=== PATIENT | female | born 1965 | race Caucasian/White ===

== ENCOUNTER → 2016-05-14 | Outpatient (CLI) | payer OTHER ==
[~2016-05-14] MED LIST: ASCO500T3 PO; ATEN-175 PO; CLON1TAB3 PO; CLR10 PO; CYCL10TA6 PO; DOCU100C PO; HYDR4TAB2 PO; IBUP-1428 PO; OPTIRAY 320 IV PRN; PROC5TAB PO; RANI300T PO; SULF800T23 PO; SUMA50TA15 PO
--- NOTE | 2016-05-14 14:38 | DIAGNOSTIC IMAGING REPORT ---
ABDOMEN AND PELVIS CT WITH IV AND ORAL CONTRAST CT DOSE: 849.38 mGy.cm HISTORY: Pain SCAN WITH IV AND ORAL ONLY PER EZEKIEL (PHOEBE) TECHNIQUE: Multiaxial CT images of the abdomen and pelvis were performed following the use of intravenous and oral contrast. COMPARISON STUDY: 12/05/2015 FINDINGS: Lung bases are clear. There is been pancreas enhance uniformly. Prior cholecystectomy. Interval right nephrectomy. Left kidney enhances uniformly. It is negative for hydronephrosis. Bowel pattern overall is nonobstructive. Postoperative changes of the anterior abdominal wall. No evidence for hernia. The colon is unremarkable in overall course and caliber. Abdominal and pelvic arterial vasculature shows minimal atelectatic change. There is midline. IMPRESSION: 1. Operative findings consistent with a prior right nephrectomy as well as cholecystectomy. 2. Otherwise negative study abdomen and pelvis. 3. No evidence for hernia, abscess, or collection. Electronically signed by: Cyril Wagoner M.D. 05/14/2016 2:37 PM Dictated Date/Time: 05/14/2016 2:30 PM
== END | disposition home or self-care (01) ==
LOC: C.CTS 13:49
DX: K43.9 Ventral hernia without obstruction or gangrene (principal); R10.9 Unspecified abdominal pain; Q63.8 Other specified congenital malformations of kidney; Z90.5 Acquired absence of kidney

== ENCOUNTER 2017-04-12 16:06 | Emergency (ER) | payer OTHER ==
[~2017-04-12] VITALS: Ht 152.4 cm; Wt 76.0 kg
[~2017-04-12 16:06] MED LIST changes: -CLR10 PO; -IBUP-1428 PO; -OPTIRAY 320 IV PRN; -PROC5TAB PO; -SULF800T23 PO
[2017-04-12 16:12] VITALS: TEMP 36.7; Ht 152.4 cm; Wt 76.0 kg
[2017-04-12] MEDS ORDERED: SODIUM CHLORIDE 0.9% 1000ML 1,000 ML IV STA (16:22)
--- NOTE | 2017-04-12 16:27 | EMERGENCY ROOM VISIT NOTE ---
History Report prepared by Samra: Ranjeet Mcgee Under the Supervision of: Dr. Mohan Burk M.D. First contact with patient: 16:18 Chief Complaint: FALL Stated Complaint: PASSED OUT,FELL AND HURT FOOT,ONLY HAVE 1 KIDNEY History of Present Illness The patient is a 51 year old female who presents to the Emergency Room with complaints of constant pain on the top of her left foot for the past 4 days. Patient states she fell four days ago when getting out of her bed. She states she felt dizzy when she was getting out of bed which caused her to lose balance and fall. She describes the foot as looking "black and blue" after the fall. She adds that the symptoms have not resolved with ice and ibuprofen. She has associated symptoms of a fever, productive cough, lightheadedness, and dehydration. Her last known fever was 101 four days ago. She states the dizziness has resolved since she arrived at the ED. She denies any ankle pain. She states she had pneumonia recently--she is not currently on antibiotics. She states her PCP is at [facility]. Pertinent past medical history includes having a kidney removed a year ago. 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 Source of History: patient Onset: 4 days ago Position: foot (left) Timing: constant Associated Symptoms: + fevers, + cough Note: Patient has lightheadedness and dehydration. She denies ankle pain. Review of Systems See HPI for pertinent positives & negatives. A total of 10 systems reviewed and were otherwise negative. Past Medical & Surgical Medical Problems: (1) Chronic back pain (2) Diabetes (3) Gastroparesis (4) Hypertension (5) Kidney disease (6) Kidney stones (7) Migraines Surgical Problems: (1) History of cholecystectomy (2) Previous section Family History FHx: diabetes FHx: heart disease Social History Smoking Status: Current Some Day Smoker Drug Use: none Marital Status: single Housing Status: lives alone Occupation Status: unemployed Current/Historical Medications Scheduled Ascorbic Acid (Vitamin C), 500 MG PO DAILY Atenolol (Tenormin), 100 MG PO DAILY Loratadine (Claritin), 10 MG PO DAILY Ranitidine Hcl (Zantac), 300 MG PO HS Scheduled PRN Cyclobenzaprine Hcl (Flexeril), 10 MG PO TID PRN for Muscle Spasm Docusate Sodium (Stool Softener), 100 MG PO DAILY PRN for Constipation Hydromorphone Hcl (Dilaudid), 4 MG PO TID PRN for Pain Ibuprofen (Motrin), 800 MG PO Q8H PRN for Pain Prochlorperazine Maleate (Compazine), 5 MG PO DAILY PRN for Nausea Sumatriptan Succinate (Imitrex), 50 MG PO UD PRN for Migraine Allergies Coded Allergies: Morphine (Verified Allergy, Severe, cardiac arrest, 01/09/16) Oxycodone (Verified Allergy, Unknown, 01/09/16) Codeine (Verified Adverse Reaction, Mild, N&V, 05/14/16) Physical Exam Vital Signs Date Time Temp Pulse Resp B/P (MAP) Pulse Ox O2 Delivery O2 Flow Rate FiO2 04/12/17 19:09 78 18 164/86 98 Room Air 04/12/17 18:38 71 181/113 04/12/17 18:02 62 173/108 99 04/12/17 17:36 64 18 97 04/12/17 17:06 59 15 98 04/12/17 16:55 172/106 04/12/17 16:52 153/101 04/12/17 16:51 64 04/12/17 16:51 73 16 160/109 97 60 153/101 78 172/106 04/12/17 16:50 164/109 04/12/17 16:12 36.7 76 18 176/100 95 Room Air Physical Exam GENERAL: Patient is in no acute distress. HEENT: No acute trauma, normocephalic atraumatic, mucous membranes moist, no nasal congestion, no scleral icterus. NECK: No stridor, no adenopathy, no meningismus, trachea is midline. LUNGS: Clear to auscultation bilaterally, no wheeze, no rhonchi, breath sounds equal. HEART: Without murmurs gallops or rubs, regular rate and rhythm. ABDOMEN: Soft, nontender, bowel sounds positive, no hernias, no peritonitis. EXTREMITIES: Tenderness over dorsum of left foot with some edema present, no contusion, no deformity. Ankle is non-tender and Achilles is intact. NEUROLOGIC: Oriented x 3, no acute motor or sensory deficits, no focal weakness. SKIN: No rash, no jaundice, no diaphoresis. Medical Decision & Procedures ER Provider Diagnostic Interpretation: Radiology results as stated below per my review and radiologist interpretation: CHEST ONE VIEW PORTABLE CLINICAL HISTORY: EVALUATE ALTERED MENTAL STATUS/WEAKNESS dyspnea COMPARISON STUDY: 06/15/2014 FINDINGS: The bones soft tissues and hemidiaphragms are normal. The cardiomediastinal silhouette is normal. The lungs are clear. The pulmonary vasculature is normal. IMPRESSION: Negative chest. The above report was generated using voice recognition software. It may contain grammatical, syntax or spelling errors. Electronically signed by: Cyril Wagoner M.D. 04/12/2017 5:27 PM L FOOT MIN 3 VIEWS ROUTINE CLINICAL HISTORY: fall, pain over metatarsals trauma COMPARISON: None. DISCUSSION: The bones and joint spaces appear intact. There is no evidence of fracture, dislocation or bony disease. Mild soft tissue edema IMPRESSION: No acute bony abnormality. Mild soft tissue edema. The above report was generated using voice recognition software. It may contain grammatical, syntax or spelling errors. Electronically signed by: Cyril Wagoner M.D. 04/12/2017 5:34 PM Laboratory Results 04/12/17 16:45 Red Blood Count 4.43, Mean Corpuscular Volume 90.5, Mean Corpuscular Hemoglobin 31.6, Mean Corpuscular Hemoglobin Concent 34.9, Mean Platelet Volume 9.2, Neutrophils (%) (Auto) 61.8, Lymphocytes (%) (Auto) 29.5, Monocytes (%) (Auto) 7.2, Eosinophils (%) (Auto) 0.9, Basophils (%) (Auto) 0.3, Neutrophils # (Auto) 4.10, Lymphocytes # (Auto) 1.96, Monocytes # (Auto) 0.48, Eosinophils # (Auto) 0.06, Basophils # (Auto) 0.02 04/12/17 16:45 Test 04/12/17 16:40 04/12/17 16:45 Urine Color YELLOW Urine Appearance TURBID (CLEAR) Urine pH 5.5 (4.5-7.5) Urine Specific Thomson 1.038 (1.000-1.030) Urine Protein 1+ (NEG) Urine Glucose (UA) NEG (NEG) Urine Ketones TRACE (NEG) Urine Occult Blood TRACE (NEG) Urine Nitrite NEG (NEG) Urine Bilirubin NEG (NEG) Urine Urobilinogen NEG (NEG) Urine Leukocyte Esterase NEG (NEG) Urine WBC (Auto) 5-10 /hpf (0-5) Urine RBC (Auto) 0-4 /hpf (0-4) Urine Hyaline Casts (Auto) 5-10 /lpf (0-5) Urine Epithelial Cells (Auto) >30 /lpf (0-5) Urine Bacteria (Auto) 1+ (NEG) Urine Crystals CALCIUM OXALATE (NONE White Blood Count 6.64 K/uL (4.8-10.8) Red Blood Count 4.43 M/uL (4.2-5.4) Hemoglobin 14.0 g/dL (12.0-16.0) Hematocrit 40.1 % (37-47) Mean Corpuscular Volume 90.5 fL (80-100) Mean Corpuscular Hemoglobin 31.6 pg (25-34) Mean Corpuscular Hemoglobin Concent 34.9 g/dl (32-36) Platelet Count 182 K/uL (130-400) Mean Platelet Volume 9.2 fL (7.4-10.4) Neutrophils (%) (Auto) 61.8 % Lymphocytes (%) (Auto) 29.5 % Monocytes (%) (Auto) 7.2 % Eosinophils (%) (Auto) 0.9 % Basophils (%) (Auto) 0.3 % Neutrophils # (Auto) 4.10 K/uL (1.4-6.5) Lymphocytes # (Auto) 1.96 K/uL (1.2-3.4) Monocytes # (Auto) 0.48 K/uL (0.11-0.59) Eosinophils # (Auto) 0.06 K/uL (0-0.5) Basophils # (Auto) 0.02 K/uL (0-0.2) RDW Standard Deviation 43.3 fL (36.4-46.3) RDW Coefficient of Variation 13.2 % (11.5-14.5) Immature Granulocyte % (Auto) 0.3 % Immature Granulocyte # (Auto) 0.02 K/uL (0.00-0.02) Anion Gap 3.0 mmol/L (3-11) Est Creatinine Clear Calc Drug Dose 50.2 ml/min Estimated GFR () 61.0 Estimated GFR (Non- 52.6 BUN/Creatinine Ratio 16.7 (10-20) Calcium Level 8.4 mg/dl (8.5-10.1) Magnesium Level 2.0 mg/dl (1.8-2.4) Total Bilirubin 0.2 mg/dl (0.2-1) Aspartate Amino Transf (AST/SGOT) 10 U/L (15-37) Alanine Aminotransferase (ALT/SGPT) 23 U/L (12-78) Alkaline Phosphatase 119 U/L (45-117) Troponin I < 0.015 ng/ml (0-0.045) Total Protein 7.2 gm/dl (6.4-8.2) Albumin 3.5 gm/dl (3.4-5.0) Globulin 3.7 gm/dl (2.5-4.0) Albumin/Globulin Ratio 0.9 (0.9-2) Thyroid Stimulating Hormone (TSH) 0.753 uIu/ml (0.300-4.500) Chemistry Specimen Hemolysis Laboratory results reviewed by me. Medications Administered Medications (Trade) Dose Ordered Sig/Bubba Route Start Time Stop Time Status Last Admin Dose Admin Sodium Chloride 1,000 ml @ 999 mls/hr Q1H1M STAT IV 04/12/17 16:22 04/12/17 17:22 DC 04/12/17 16:22 999 MLS/HR Hydralazine HCl (HydrALAZINE INJ) 10 mg NOW STAT IV 04/12/17 18:04 04/12/17 18:05 DC 04/12/17 18:16 10 MG Acetaminophen (Tylenol Tab) 1,000 mg NOW STAT PO 04/12/17 18:12 04/12/17 18:13 DC 04/12/17 18:17 1,000 MG Hydralazine HCl (HydrALAZINE INJ) 10 mg NOW STAT IV 04/12/17 18:39 04/12/17 18:41 DC 04/12/17 18:47 10 MG ECG Indication: other (Fall) Rate (beats per minute): 66 Rhythm: normal sinus Findings: no acute ischemic change, no ectopy ED Course 1620: The patient was evaluated in room B12. A complete history and physical exam was performed. 1622: Sodium Chloride 1000 ml @ 999 mls/hr IV 1804: Hydralazine HCl 10mg IV 1812: Tylenol Tab 1000mg PO 1815: Orthostatic vital signs are negative 1839: Hydralazine HCl 10mg IV 1915: Reevaluated the patient. Discussed results and discharge instructions. She verbalized understanding and agreement. The patient is ready for discharge. Medical Decision Differential Diagnosis: Foot contusion, ligamentous injury, foot fracture, UTI, dehydration, anemia, dysrhythmia, electrolyte imbalance There is no leukocytosis or concerning anemia. No significant electrolyte abnormality, kidney failure or hepatitis. Orthostatic vital signs were negative. EKG showed a sinus rhythm, no acute ischemia. Cardiac enzyme testing times one is not consistent with acute cardiac injury. Urinalysis shows contamination, no infection. Left foot film shows some swelling, no fracture seen. Chest film does not show pneumonia or CHF. The patient appears to be in a euthyroid state. The patient received IV saline, she was placed in a walking boot. She was given oral Tylenol for pain. The patient received 2 doses of IV hydralazine for some persistently elevated blood pressure. The patient is doing well. Her workup is benign. Her blood pressure is now better controlled with the IV hydralazine. The patient will see her doctor in a few days for a recheck of her blood pressure. She will contact orthopedics for a follow-up of the left foot injury. At this point, the foot appears sprained. Patient was encouraged to return for any worsening symptoms. She was reassured and discharged. Medication Reconcilliation Current Medication List: was personally reviewed by me Blood Pressure Screening Patient's blood pressure: Elevated blood pressure Blood pressure disposition: Referred to PCP Impression Primary Impression: Dizziness Additional Impressions: Sprain of left foot Hypertension Scribe Attestation The scribe's documentation has been prepared under my direction and personally reviewed by me in its entirety. I confirm that the note above accurately reflects all work, treatment, procedures, and medical decision making performed by me. Departure Information Dispostion Home / Self-Care Referrals No Doctor, Assigned (PCP) Forms HOME CARE DOCUMENTATION FORM, IMPORTANT VISIT INFORMATION Patient Instructions My [facility] Additional Instructions see your doctor friday for a recheck and blood pressure check ice to the foot 30 minutes on and 30 minutes off wear the boot for walking rest the foot elevated the foot call orthopedics friday for an appt this week return if worsening lab testing today was all ok Problem Qualifiers
[2017-04-12 17:00] LABS: BASO % 0.3 %; BASO ABS # 0.02 K/uL (0-0.2); EOS % 0.9 %; EOS ABS # 0.06 K/uL (0-0.5); HEMATOCRIT 40.1 % (37-47); IG# 0.02 K/uL (0.00-0.02); LYMPH % 29.5 %; LYMPH ABS # 1.96 K/uL (1.2-3.4); MEAN CELL VOLUME 90.5 fL (80-100); MEAN CORPUSCULAR HEMOGLOBIN 31.6 pg (25-34); MEAN CORPUSCULAR HGB CONC 34.9 g/dl (32-36); MEAN PLATELET VOLUME 9.2 fL (7.4-10.4); MONO % 7.2 %; MONO ABS # 0.48 K/uL (0.11-0.59); NEUT % 61.8 %; PLATELET COUNT 182 K/uL (130-400); RED CELL DISTRIBUTION WIDTH CV 13.2 % (11.5-14.5); RED CELL DISTRIBUTION WIDTH SD 43.3 fL (36.4-46.3); WHITE BLOOD COUNT 6.64 K/uL (4.8-10.8)
[2017-04-12 17:24] LABS: ALBUMIN 3.5 gm/dl (3.4-5.0); ALT/SGPT 23 U/L (12-78); AST/SGOT 10 U/L (15-37); BLOOD UREA NITROGEN 20 mg/dl (7-18); CALCIUM 8.4 mg/dl (8.5-10.1); CARBON DIOXIDE 27 mmol/L (21-32); CREATININE 1.18 mg/dl (0.60-1.20); GLUCOSE 127 mg/dl (70-99); POTASSIUM 3.4 mmol/L (3.5-5.1); SODIUM 141 mmol/L (136-145)
--- NOTE | 2017-04-12 17:28 | DIAGNOSTIC IMAGING REPORT ---
CHEST ONE VIEW PORTABLE CLINICAL HISTORY: EVALUATE ALTERED MENTAL STATUS/WEAKNESS dyspnea COMPARISON STUDY: 06/15/2014 FINDINGS: The bones soft tissues and hemidiaphragms are normal. The cardiomediastinal silhouette is normal. The lungs are clear. The pulmonary vasculature is normal. IMPRESSION: Negative chest. The above report was generated using voice recognition software. It may contain grammatical, syntax or spelling errors. Electronically signed by: Cyril Wagoner M.D. 04/12/2017 5:27 PM Dictated Date/Time: 04/12/2017 5:26 PM
[2017-04-12 17:30] LABS: ALKALINE PHOSPHATASE 119 U/L (45-117); TOTAL PROTEIN 7.2 gm/dl (6.4-8.2)
--- NOTE | 2017-04-12 17:36 | DIAGNOSTIC IMAGING REPORT ---
L FOOT MIN 3 VIEWS ROUTINE CLINICAL HISTORY: fall, pain over metatarsals trauma COMPARISON: None. DISCUSSION: The bones and joint spaces appear intact. There is no evidence of fracture, dislocation or bony disease. Mild soft tissue edema IMPRESSION: No acute bony abnormality. Mild soft tissue edema. The above report was generated using voice recognition software. It may contain grammatical, syntax or spelling errors. Electronically signed by: Cyril Wagoner M.D. 04/12/2017 5:34 PM Dictated Date/Time: 04/12/2017 5:34 PM
[2017-04-12] MEDS ORDERED: CLR10 PO (17:48)
[2017-04-12] MEDS ORDERED: IBUP-1428 PO (17:48)
[2017-04-12] MEDS ORDERED: HydrALAZINE HCL 20 MG/ML VIAL IV STA ×2 (18:04→18:39)
[2017-04-12] MEDS ORDERED: ACETAMINOPHEN 500 MG TAB PO STA (18:12)
[2017-04-12 19:09] VITALS: BP 164/86; PULSE 78; O2SAT 98
[2017-04-12] MEDS ORDERED: PROC5TAB PO (19:37)
== END 2017-04-12 19:17 | disposition home or self-care (01) ==
LOC: C.EDB 16:08
DX: R42 Dizziness and giddiness (principal); S93.602A Unspecified sprain of left foot, initial encounter; W06.XXXA Fall from bed, initial encounter; Y92.003 Bedroom of unspecified non-institutional (private) residence as the place of occurrence of the external cause; I10 Essential (primary) hypertension; M54.9 Dorsalgia, unspecified; G89.29 Other chronic pain; E11.43 Type 2 diabetes mellitus with diabetic autonomic (poly)neuropathy; N28.9 Disorder of kidney and ureter, unspecified; G43.909 Migraine, unspecified, not intractable, without status migrainosus; F17.200 Nicotine dependence, unspecified, uncomplicated; Z87.442 Personal history of urinary calculi